=== PATIENT | male | born 1980 | race Caucasian/White ===

== ENCOUNTER 2021-03-31 02:10 | Emergency (ER) | payer SELFPAY ==
[~2021-03-31] VITALS: Ht 165.1 cm; Wt 74.8 kg
--- NOTE | 2021-03-31 02:17 | NUR ---
PT [facility] BLS. TAKEN TO BED 5. [place] [employer] AT BEDSIDE
[2021-03-31 02:20] VITALS: BP 153/85
--- NOTE | 2021-03-31 02:29 | NUR ---
PATIENT EVALUATED AND DISCHRGED BY ERMD. NO NURSING INTERVENTIONS NEEDED AT THIS TIME.
[2021-03-31 02:30] VITALS: BP 153/85
--- NOTE | 2021-03-31 02:30 | NUR ---
Patient discharged with v/s stable. Written and verbal after care instructions given and explained. Patient verbalized understanding. Ambulatory with steady gait. All questions addressed prior to discharge. Advised to follow up with PMD.
== END 2021-03-31 02:30 | disposition home or self-care (01) ==
LOC: MED 02:10
DX: R45.1 Restlessness and agitation (principal); R41.82 Altered mental status, unspecified; F19.10 Other psychoactive substance abuse, uncomplicated
CPT/HCPCS: 99283